=== PATIENT | female | born 1970 | race African-American/Black ===

== ENCOUNTER 2017-01-12 12:13 | Inpatient (IN) | payer OTHER ==
[~2017-01-12] VITALS: Ht 162.6 cm; Wt 91.4 kg
[2017-01-12] MEDS ORDERED: SODIUM CHLORIDE 0.9% 1,000 ML IVB ONE (13:04)
[2017-01-12 13:05] LABS: Basophils # (auto) 0 uL; Basophils % (auto) 0.9 % (0.0-2.0); Eosinophils # (auto) 0.1 uL; Eosinophils % (auto) 1.2 % (0.0-7.0); Hematocrit 43.6 % (36.0-46.0); Hemoglobin 14.2 g/dL (12.2-16.2); Lymphocytes # (auto) 1.5 uL; Lymphocytes % (auto) 32.9 % (10.0-50.0); Mean Corpuscular Hgb Conc. 32.6 g/dL (32.0-36.0); Mean Platelet Volume 7.9 fL (6.9-10.8); Monocytes # (auto) 0.4 uL; Monocytes % (auto) 8.2 % (0.0-12.0); Neutrophils # (auto) 2.6 uL; Neutrophils % (auto) 56.8 % (37.0-80.0); Nucleated Red Blood Cells % 0.1 %; Platelet Count (auto) 247 10^3/uL (140-450); Red Cell Distribution Width 13.8 % (11.8-14.3); White Blood Cell 4.6 10^3/uL (4.4-10.8)
[2017-01-12] MEDS ORDERED: ONDANSETRON HCL 4 MG/2 ML VIAL IV ONE (13:15)
[2017-01-12] MEDS ORDERED: HYDROmorphone HCL 2 MG/ML VL IV ONE ×2 (13:15→17:00)
[2017-01-12 13:24] LABS: Albumin 3.9 g/dL (3.4-5.0); Alkaline Phosphatase 78 U/L (45-117); Anion Gap 9 (5-15); Aspartate Aminotransferase 27 U/L (15-37); Bilirubin, Total 0.5 mg/dL (0.2-1.0); Blood Urea Nitrogen 8 mg/dL (7-18); Calcium 9.2 mg/dL (8.5-10.1); Carbon Dioxide 25 mmol/L (21-32); Chloride 101 mmol/L (98-107); GFR African American 100 mL/min; GFR Non-African American 82 mL/min; Glucose 102 mg/dL (74-106); Potassium 3.3 mmol/L (3.5-5.1); Sodium 135 mmol/L (136-145); Total Protein 8.5 g/dL (6.4-8.2)
[2017-01-12] MEDS ORDERED: LORazepam 2MG/ML-1ML VIAL IV PRN (17:30)
[2017-01-12] MEDS: SOD CHL 0.9%/ KCL 20MEQ 1,000 ML IV SCH (17:47)
[2017-01-12] MEDS: ATENOLOL 50 MG TAB PO SCH (17:55)
[2017-01-12 17:58] LABS: Urine Bilirubin Negative (Negative); Urine Blood Negative /uL (Negative); Urine Color Yellow (Yellow); Urine Glucose Normal (Normal); Urine Ketone Negative (Negative); Urine Nitrite Negative (Negative); Urine RBC 1 /hpf (0 - 4); Urine Squamous Epithelial Cell FEW /hpf (<5); Urine Urobilinogen Normal (Negative); Urine pH 7.5 (5.0-8.0)
[2017-01-12] MEDS: ONDANSETRON HCL 4 MG/2 ML VIAL IV PRN (20:19)
[2017-01-12] MEDS: MORPHINE SULF INJ 2 MG/ML SYRINGE 1ML IV PRN (20:19)
[2017-01-12 20:57] VITALS: BP 132/96
[2017-01-12 22:00] VITALS: BP 132/96
[2017-01-13] MEDS: MORPHINE SULF INJ 2 MG/ML SYRINGE 1ML IV PRN ×5 (00:26→22:44)
[2017-01-13] MEDS ORDERED: ESTR0.1C TD (02:18)
[2017-01-13] MEDS ORDERED: AML5T PO (02:18)
[2017-01-13] MEDS ORDERED: DIA5T PO (02:18)
[2017-01-13] MEDS ORDERED: ATE50T PO (02:18)
[2017-01-13] MEDS ORDERED: PREG75CA PO (02:18)
[2017-01-13] MEDS ORDERED: OXYC325T14 PO (02:18)
[2017-01-13] MEDS ORDERED: HYDR25TA4 PO (02:18)
[2017-01-13 05:32] VITALS: BP 117/59
[2017-01-13 05:57] LABS: Basophils # (auto) 0.1 uL; Basophils % (auto) 0.9 % (0.0-2.0); Eosinophils # (auto) 0.1 uL; Eosinophils % (auto) 1.1 % (0.0-7.0); Hematocrit 38.7 % (36.0-46.0); Hemoglobin 12.5 g/dL (12.2-16.2); Lymphocytes # (auto) 3.3 uL; Lymphocytes % (auto) 38.8 % (10.0-50.0); Mean Corpuscular Hemoglobin 29.4 pg (28.0-32.0); Mean Corpuscular Hgb Conc. 32.4 g/dL (32.0-36.0); Mean Corpuscular Volume 90.7 fL (80.0-100.0); Mean Platelet Volume 8.4 fL (6.9-10.8); Monocytes # (auto) 0.7 uL; Monocytes % (auto) 8.6 % (0.0-12.0); Neutrophils # (auto) 4.3 uL; Neutrophils % (auto) 50.6 % (37.0-80.0); Platelet Count (auto) 212 10^3/uL (140-450); Red Cell Distribution Width 14.1 % (11.8-14.3); White Blood Cell 8.4 10^3/uL (4.4-10.8)
[2017-01-13 06:27] LABS: Calcium 8.2 mg/dL (8.5-10.1); Potassium 3.1 mmol/L (3.5-5.1)
[2017-01-13 06:28] LABS: BUN/Creatinine Ratio 12.7
[2017-01-13] MEDS: SOD CHL 0.9%/ KCL 20MEQ 1,000 ML IV SCH ×2 (06:50→21:21)
[2017-01-13 09:00] VITALS: BP 146/88
[2017-01-13] MEDS: ATENOLOL 50 MG TAB PO SCH (10:36)
[2017-01-13] MEDS: LORazepam 2MG/ML-1ML VIAL IV PRN ×2 (12:22→21:08)
[2017-01-13 13:00] VITALS: BP 125/87
[2017-01-13] MEDS ORDERED: POTASSIUM CHL 20 Meq TABLET PO ONE (14:30)
[2017-01-13] MEDS ORDERED: LORazepam 2MG/ML-1ML VIAL IV PRN (15:45)
[2017-01-13 16:57] VITALS: BP 122/73
[2017-01-13 22:00] VITALS: BP 153/90
[2017-01-13] MEDS: ONDANSETRON HCL 4 MG/2 ML VIAL IV PRN (22:43)
[2017-01-14 05:00] VITALS: BP 157/91
[2017-01-14] MEDS ORDERED: LORA-622 PO (06:48)
[2017-01-14] MEDS ORDERED: GUAI1SOL3 PO (06:49)
[2017-01-14] MEDS: ONDANSETRON HCL 4 MG/2 ML VIAL IV PRN (07:54)
[2017-01-14] MEDS: MORPHINE SULF INJ 2 MG/ML SYRINGE 1ML IV PRN (08:00)
[2017-01-14 08:14] VITALS: BP 154/89
[2017-01-14] MEDS: ATENOLOL 50 MG TAB PO SCH (09:49)
[2017-01-14] MEDS: SOD CHL 0.9%/ KCL 20MEQ 1,000 ML IV SCH (09:49)
[2017-01-14] MEDS ORDERED: HCTZ 25 MG TAB PO ONE (11:30)
[2017-01-14] MEDS ORDERED: HYDROcodone-ACET 5/325MG TAB PO PRN (11:30)
[2017-01-14] MEDS ORDERED: amLODIPine BESYLATE 5 MG TAB PO ONE (11:30)
[2017-01-14] MEDS ORDERED: OXYCODONE W/ ACETAMINOPHEN 5/325MG TABLET PO PRN (11:45)
[2017-01-14 15:09] VITALS: BP 151/85
[2017-01-15] MEDS ORDERED: HCTZ 25 MG TAB PO SCH (10:00)
[2017-01-15] MEDS ORDERED: amLODIPine BESYLATE 5 MG TAB PO SCH (10:00)
== END 2017-01-14 17:15 | disposition home or self-care (01) | DRG 101 ==
LOC: EDBD 12:13 → ER 12:13 → OVERFLOW 12:14 → WEST WING 20:42
PROVIDERS: ADMIT Internal Medicine; ATTEND Internal Medicine
PROC: 4A10X4Z Monitoring of Central Nervous Electrical Activity, External Approach (ICD-10-PCS; principal; 2017-01-14)
DX: G40.89 Other seizures (principal); K76.0 Fatty (change of) liver, not elsewhere classified; I10 Essential (primary) hypertension; W18.30XA Fall on same level, unspecified, initial encounter; E87.6 Hypokalemia; F31.9 Bipolar disorder, unspecified; G89.29 Other chronic pain; R10.32 Left lower quadrant pain; M54.9 Dorsalgia, unspecified; F41.9 Anxiety disorder, unspecified; Y92.231 Patient bathroom in hospital as the place of occurrence of the external cause; Y93.01 Activity, walking, marching and hiking; J06.9 Acute upper respiratory infection, unspecified; Z90.710 Acquired absence of both cervix and uterus; Z80.41 Family history of malignant neoplasm of ovary; Z82.49 Family history of ischemic heart disease and other diseases of the circulatory system; Z79.899 Other long term (current) drug therapy; Y99.8 Other external cause status
CPT/HCPCS: 36415; 51702; 70450; 70551; 72125; 74176; 80048; 80053; 80307; 81001; 83690; 83735; 84484; 84702; 85025; 87081; 93005; 94761; 95819; 96361; 96374; 96375; 96376; J2405

== ENCOUNTER 2017-08-21 19:10 | Emergency (ER) | payer OTHER ==
[~2017-08-21] VITALS: Ht 162.6 cm; Wt 72.6 kg
[~2017-08-21 19:10] MED LIST: AML5T PO; ATE50T PO; DIA5T PO; ESTR0.1C TD; GUAI1SOL3 PO; HYDR25TA4 PO; LORA-622 PO; OXYC325T14 PO; PREG75CA PO
[2017-08-21 19:20] VITALS: BP 152/84
[2017-08-21 20:01] LABS: Basophils # (auto) 0.1 uL; Basophils % (auto) 1.8 % (0.0-2.0); Eosinophils # (auto) 0 uL; Eosinophils % (auto) 0.8 % (0.0-7.0); Hematocrit 39.2 % (36.0-46.0); Hemoglobin 12.7 g/dL (12.2-16.2); Lymphocytes # (auto) 2.3 uL; Lymphocytes % (auto) 46.1 % (10.0-50.0); Mean Corpuscular Hemoglobin 29.1 pg (28.0-32.0); Mean Corpuscular Hgb Conc. 32.4 g/dL (32.0-36.0); Mean Corpuscular Volume 89.6 fL (80.0-100.0); Monocytes # (auto) 0.5 uL; Monocytes % (auto) 9.3 % (0.0-12.0); Neutrophils # (auto) 2.1 uL; Nucleated Red Blood Cells % 0.2 %; Platelet Count (auto) 218 10^3/uL (140-450); Red Blood Cells 4.37 10^6/uL (4.0-5.20); Red Cell Distribution Width 14.4 % (11.8-14.3); White Blood Cell 4.9 10^3/uL (4.4-10.8)
[2017-08-21 20:16] LABS: Calcium 9.2 mg/dL (8.5-10.1); Potassium 3.3 mmol/L (3.5-5.1)
[2017-08-21 20:18] LABS: Bilirubin, Total 0.4 mg/dL (0.2-1.0); Total Protein 8.5 g/dL (6.4-8.2)
== END 2017-08-21 20:59 | disposition left against medical advice (07) ==
LOC: ER 19:14
DX: R51 Headache (principal)
CPT/HCPCS: 36415; 80053; 85025

== ENCOUNTER 2019-08-30 17:08 | Inpatient (IN) | payer OTHER ==
[~2019-08-30] VITALS: Ht 162.6 cm; Wt 85.5 kg
[2019-08-30 18:47] LABS: Basophils # (auto) 0 10 ^3/uL (0-0.2); Basophils % (auto) 0.6 % (0.0-2.0); Eosinophils # (auto) 0 10 ^3/uL (0-0.8); Eosinophils % (auto) 0.7 % (0.0-7.0); Hematocrit 40.4 % (36.0-46.0); Hemoglobin 13.4 g/dL (12.2-16.2); Lymphocytes # (auto) 1.9 10 ^3/uL (0.4-5.4); Mean Corpuscular Hemoglobin 29.3 pg (28.0-32.0); Mean Corpuscular Hgb Conc. 33.1 g/dL (32.0-36.0); Mean Corpuscular Volume 88.4 fL (80.0-100.0); Monocytes # (auto) 0.8 10 ^3/uL (0-1.3); Monocytes % (auto) 11.3 % (0.0-12.0); Neutrophils % (auto) 59.4 % (37.0-80.0); Nucleated Red Blood Cells % 0.1 %; Platelet Count (auto) 269 10^3/uL (140-450); Red Blood Cells 4.57 10^6/uL (4.0-5.20); Red Cell Distribution Width 13.7 % (11.8-14.3); White Blood Cell 6.7 10^3/uL (4.4-10.8)
[2019-08-30 19:08] LABS: Lactic Acid w/Reflex 2.2 mmol/L (0.4-2.0)
[2019-08-30] MEDS ORDERED: HYDROcodone-ACET 5/325MG TAB PO ONE (19:15)
[2019-08-30 19:19] LABS: Albumin 3.9 g/dL (3.4-5.0); Calcium 9.4 mg/dL (8.5-10.1); Magnesium 1.9 mg/dL (1.6-2.6); Potassium 3.3 mmol/L (3.5-5.1)
[2019-08-30 19:24] LABS: BUN/Creatinine Ratio 7.3; Bilirubin, Total 0.4 mg/dL (0.2-1.0); CRP High Sensitivity 0.68 mg/dL (< 0.3); Total Protein 8.7 g/dL (6.4-8.2)
[2019-08-30] MEDS ORDERED: SODIUM CHLORIDE 0.9% 1,000 ML IV SCH (20:05)
[2019-08-30] MEDS ORDERED: ACETAMINOPHEN 500 MG TAB PO PRN (20:15)
[2019-08-30] MEDS ORDERED: NITROGLYCERIN 0.4 MG SL TAB SL PRN (20:15)
[2019-08-30] MEDS ORDERED: LORazepam 0.5 MG TAB PO PRN (20:15)
[2019-08-30] MEDS ORDERED: ONDANSETRON HCL 4 MG/2 ML VIAL IV PRN (20:15)
[2019-08-30] MEDS ORDERED: MORPHINE SULF INJ 2 MG/ML SYRINGE 1ML IV PRN (20:15)
[2019-08-30 21:33] LABS: Urine Bacteria FEW /hpf (None Seen); Urine Blood Negative /uL (Negative); Urine Hyaline Cast FEW /lpf (0 - 2); Urine Mucus FEW (None Seen); Urine Specific Gravity 1.022 (1.001-1.035); Urine WBC 1 /hpf (0 - 5)
[2019-08-30 21:41] LABS: INR 1.09 (0.9-1.15); Partial Thromboplastin Time 27.3 sec (23.64-32.05)
[2019-08-30 22:00] VITALS: BP 150/79
--- NOTE | 2019-08-30 22:00 | NUR ---
Telemetry admit from ER [facility] admitted to Telemetry unit. Patient oriented to Brandy Akhtar, primary RN, unit, room, bed, and unit policies regarding patient care and NO VISITING CURRENT POLICY. Patient now on continuous telemetry monitoring, tele box #3 and telemetry reading on arrival to unit is SR 77 . Patient placed on bedside oxygen AT 3L, weighed by bedscale and encouraged to call if they need something. All questions and concerns addressed, patient verbalized understanding. PATIENT ISOLATION FOR RULE OUT COVID-19.
[2019-08-30] MEDS: SOD CHL 0.9%/ KCL 20MEQ 1,000 ML IV SCH (22:33)
[2019-08-30] MEDS: ATORVASTATIN 20 MG TAB PO SCH (22:56)
[2019-08-30] MEDS: DOXYCYCLINE 100 MG TAB/CAP PO SCH (22:57)
[2019-08-30] MEDS: ALBUTEROL SULF HFA 90MCG INH 200DOSE IN SCH (22:57)
[2019-08-30] MEDS: QUEtiapine FUMARATE 100 MG TAB PO SCH (22:57)
[2019-08-30] MEDS: PREGABALIN CAPSULE 75 MG CAP PO SCH (22:57)
--- NOTE | 2019-08-30 22:57 | NUR ---
Respiratory note: Addendum: 08/30/19 at 2307 by RT KATIANA RT ALBUTEROL MDI ADMINISTERED BY MÓNICA RODRIGUEZ. WILL CONTINUE TO MONITOR.
[2019-08-30] MEDS: MORPHINE SULF INJ 2 MG/ML SYRINGE 1ML IV PRN (23:11)
--- NOTE | 2019-08-30 23:24 | NUR ---
PATIENT UP TO RESTROOM STANDBY ASSIST PATIENT TOLERATED WELL. PATIENT BACK IN BED.
[2019-08-30 23:25] VITALS: BP 138/72
--- NOTE | 2019-08-30 23:30 | NUR ---
PAIN REASSESSMENT 08/26 PROVIDED PATIENT WITH EXTRA PILLOW AND ASSISTED PATIENT REPOSITIONING IN BED. PATIENT REPORTS TO BE COMFORTABLE.
[2019-08-31] VITALS: BP 122/69
--- NOTE | 2019-08-31 01:52 | NUR ---
PATIENT REPORTS PAIN 7/10. PROVIDED PATIENT WITH HEAT PADS TO HELP ALLEVIATE PAIN AND ASSISTED PATIENT IN REPOSITIONING WITH EXTRA PILLOWS. PAIN MEDS ARE NOT DUE AT THIS TIME. PATIENT REPORTS TO BE COMFORTABLE.
[2019-08-31] MEDS: MORPHINE SULF INJ 2 MG/ML SYRINGE 1ML IV PRN ×5 (03:29→22:43)
[2019-08-31] MEDS: SOD CHL 0.9%/ KCL 20MEQ 1,000 ML IV SCH (04:11)
[2019-08-31] MEDS: ALBUTEROL SULF HFA 90MCG INH 200DOSE IN SCH ×3 (06:47→22:24)
[2019-08-31] MEDS ORDERED: LEVOTHYROXINE SODIUM 25 MCG TAB PO SCH (07:00)
[2019-08-31 07:34] LABS: Basophils # (auto) 0.1 10 ^3/uL (0-0.2); Basophils % (auto) 1.7 % (0.0-2.0); Eosinophils # (auto) 0.1 10 ^3/uL (0-0.8); Hematocrit 37.5 % (36.0-46.0); Hemoglobin 12.3 g/dL (12.2-16.2); Lymphocytes # (auto) 3.8 10 ^3/uL (0.4-5.4); Lymphocytes % (auto) 53.3 % (10.0-50.0); Mean Corpuscular Hemoglobin 29.1 pg (28.0-32.0); Mean Corpuscular Hgb Conc. 32.9 g/dL (32.0-36.0); Mean Corpuscular Volume 88.4 fL (80.0-100.0); Monocytes # (auto) 0.7 10 ^3/uL (0-1.3); Monocytes % (auto) 10.2 % (0.0-12.0); Neutrophils # (auto) 2.4 10 ^3/uL (1.6-8.6); Neutrophils % (auto) 33.8 % (37.0-80.0); Nucleated Red Blood Cells % 0.4 %; Platelet Count (auto) 244 10^3/uL (140-450); Red Blood Cells 4.24 10^6/uL (4.0-5.20); Red Cell Distribution Width 13.7 % (11.8-14.3)
[2019-08-31 07:45] LABS: INR 1.13 (0.9-1.15); Partial Thromboplastin Time 26.8 sec (23.64-32.05)
[2019-08-31 07:52] LABS: Alanine Aminotransferase 32 U/L (13-56); Albumin 3.3 g/dL (3.4-5.0); Anion Gap 9 (5-15); Aspartate Aminotransferase 35 U/L (15-37); BUN/Creatinine Ratio 7.5; Blood Urea Nitrogen 5 mg/dL (7-18); Calcium 8.5 mg/dL (8.5-10.1); Carbon Dioxide 27 mmol/L (21-32); Chloride 103 mmol/L (98-107); GFR African American 121 mL/min; GFR Non-African American 100 mL/min; Glucose 101 mg/dL (74-106); Magnesium 1.8 mg/dL (1.6-2.6); Sodium 139 mmol/L (136-145)
[2019-08-31 07:57] LABS: Alkaline Phosphatase 65 U/L (45-117); Bilirubin, Total 0.6 mg/dL (0.2-1.0); CRP High Sensitivity 0.44 mg/dL (< 0.3); Cholesterol 190 mg/dL (< 200); Creatine Kinase IFCC 263 U/L (26-192); Phosphorus 4.4 mg/dL (2.5-4.90); Total Protein 7.4 g/dL (6.4-8.2)
[2019-08-31 08:00] LABS: HDL Cholesterol 40 mg/dL (40-59); LDL Cholesterol 123 mg/dL (< 100); Triglycerides 226 mg/dL (< 150)
--- NOTE | 2019-08-31 08:00 | NUR ---
OPENING SHIFT NOTE: PATIENT RESTING IN BED. RESPIRATIONS EVEN AND UNLABORED. NO S/S OF DISTRESS NOTED AT THIS TIME. A&OX4. PATIENT ON 2L NC. REPORTS HOME OXYGEN USE AT 2L VIA NC. PATIENT REPORTS CHRONIC BACK PAIN 01/26. SEE EMAR FOR MEDICATION ADMINISTRATION. UPDATED ON POC. BED IN LOWEST LOCKED POSITION WITH CALL LIGHT WITHIN REACH.
[2019-08-31] MEDS: PREGABALIN CAPSULE 75 MG CAP PO SCH ×2 (09:21→22:00)
[2019-08-31] MEDS: amLODIPine BESYLATE 5 MG TAB PO SCH ×2 (09:21→09:42)
[2019-08-31] MEDS: ATENOLOL 50 MG TAB PO SCH (09:30)
[2019-08-31] MEDS: DOXYCYCLINE 100 MG TAB/CAP PO SCH (09:30)
[2019-08-31] MEDS: ENOXAPARIN SOD 40 MG/0.4 ML SYRINGE SC SCH (09:31)
[2019-08-31] MEDS: ASCORBIC ACID 1,000 MG TAB PO SCH (09:31)
[2019-08-31] MEDS: CHOLECALCIFEROL (VITD3) 1,000UNIT=25mCg TAB PO SCH (09:31)
[2019-08-31] MEDS: HYDROcodone-ACET 5/325MG TAB PO PRN ×3 (09:43→18:07)
[2019-08-31] MEDS ORDERED: ZINC SULFATE 220mg CAP or TAB PO SCH (10:00)
[2019-08-31] MEDS ORDERED: POTASSIUM CHL 20 Meq TABLET PO ONE (11:15)
--- NOTE | 2019-08-31 13:16 | NUR ---
TRANSFERRED TO ROOM 288 WITH MÓNICA DRISCOLL. TRANSFERRED BY KIERRA BEARDEN. NO S/S OF DISTRESS NOTED.
--- NOTE | 2019-08-31 13:20 | NUR ---
Telemetry admit from [facility] admitted to Telemetry unit after SBAR received. Patient oriented to AMERICO GEIGER RN primary RN, unit, room 288A, bed, and unit policies regarding patient care and visiting hours. Patient now on continuous telemetry monitoring, tele box # 3 and telemetry reading on arrival to unit is sinus rhythm. Patient placed on bedside oxygen at 2lpm , weighed by bedscale and encouraged to call if they need something. All questions and concerns addressed, patient verbalized understanding.
--- NOTE | 2019-08-31 15:23 | NUR ---
MDI GIVEN BY RN. FELIZ , PER THE PT., NO RESP. DISTRESS NOTED. PT. STATES SHE JUST MOVED TO THIS ROOM. RT. DID NOT ADMINISTER AT THIS TIME.
[2019-08-31] MEDS ORDERED: AZITHROMYCIN 250 MG TAB PO ONE (16:15)
[2019-08-31] MEDS: ALUM & MAG HYDROX-SIMETH LIQ(MAALOX) 30 ML PO PRN (16:45)
[2019-08-31 17:00] VITALS: BP 101/60
--- NOTE | 2019-08-31 18:42 | NUR ---
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
[2019-08-31] MEDS ORDERED: HYDROmorphone HCL 2 MG/ML VL IV ONE (19:00)
[2019-08-31 20:00] VITALS: BP 108/69
--- NOTE | 2019-08-31 20:00 | NUR ---
Opening Shift Note Assumed care of patient, awake, AAOx4. No S/S of distress/SOB. On 2L oxygen via nasal cannula. Ambulatory. Bed in lowest locked position, side rails up x2, call light within reach. Instructed on POC and to call for assist PRN, will continue to monitor for changes Q1hr and PRN.
[2019-08-31 22:00] VITALS: BP 108/69
[2019-08-31] MEDS ORDERED: hydrOXYchloroQUINE SULFATE 200 MG TAB PO SCH (22:00)
[2019-08-31] MEDS: QUEtiapine FUMARATE 100 MG TAB PO SCH (22:00)
[2019-08-31] MEDS: ATORVASTATIN 20 MG TAB PO SCH (22:00)
--- NOTE | 2019-08-31 22:24 | NUR ---
ALBUTEROL MDI ADMINISTERED WITH SPACER ATTACHMENT. SPO2 100% ON 3L NC, TITRATED TO 2L, HR 73. WILL CONTINUE WITH NEXT SCHEDULED TX.
[2019-09-01 05:00] VITALS: BP 120/83
[2019-09-01] MEDS: ALBUTEROL SULF HFA 90MCG INH 200DOSE IN SCH ×3 (07:09→22:06)
--- NOTE | 2019-09-01 07:30 | NUR ---
Opening Shift Note Assumed care of patient, resting comfortably. No S/S of distress/SOB or pain on 2 LPM via nasal cannula. Instructed on POC and to call for assist PRN, will continue to monitor for changes Q1hr and PRN. Bed in low and locked position, rails up x2, no-slip socks on.
[2019-09-01 09:00] VITALS: BP 153/83
--- NOTE | 2019-09-01 09:00 | NUR ---
CALLED INTO ROOM PATIENTS CALLED ASKING TO SPEAK TO NURSE, AT THIS TIME THIS NURSE WAS ALREADY PULLING PAIN MEDICATIONS TO MEDICATE PATIENT AFTER PATIENT HAD CALLED ARCHITECTURAL COATING FINISHER LIGHT. PATIENT STATING 10/10 PAIN TO LOWER BACK, CRYING AND GUARDING SITE. MEDICATED PATIENT ORDERED, SUPPLIED HEAT PACKS AND PLACED IN POSITION OF COMFORT. UPON REASSESSMENT OF PAIN, PATIENT IS EYES CLOSED SLEEPING IN BED, WILL REASSESS PATIENTS PAIN LEVEL AND NOTIFY MD.
[2019-09-01] MEDS: MORPHINE SULF INJ 2 MG/ML SYRINGE 1ML IV PRN ×4 (09:07→21:15)
[2019-09-01] MEDS: ATENOLOL 50 MG TAB PO SCH (09:49)
[2019-09-01] MEDS: CHOLECALCIFEROL (VITD3) 1,000UNIT=25mCg TAB PO SCH (09:49)
[2019-09-01] MEDS: amLODIPine BESYLATE 5 MG TAB PO SCH (09:50)
[2019-09-01] MEDS: PREGABALIN CAPSULE 75 MG CAP PO SCH ×2 (09:50→22:00)
[2019-09-01] MEDS: ENOXAPARIN SOD 40 MG/0.4 ML SYRINGE SC SCH (09:57)
[2019-09-01] MEDS: AZITHROMYCIN 250 MG TAB PO SCH (09:59)
[2019-09-01] MEDS: ASCORBIC ACID 1,000 MG TAB PO SCH (10:46)
[2019-09-01] MEDS: HYDROcodone-ACET 5/325MG TAB PO PRN ×2 (10:46→14:50)
[2019-09-01] MEDS: ALUM & MAG HYDROX-SIMETH LIQ(MAALOX) 30 ML PO PRN (10:46)
--- NOTE | 2019-09-01 12:25 | NUR ---
DR JACQUES AT BEDSIDE ORDERS TO TRANSFER TO [facility], STOOL SAMPLE FOR OCCULT BLOOD, C-DIFF AND BACTERIAL CULTURE, SPECIMEN CUP AND HAT PROVIDED.
[2019-09-01 13:00] VITALS: BP 146/83
--- NOTE | 2019-09-01 14:21 | NUR ---
PAGE TO DR JACQUES PATIENT STILL COMPLAINING OF PAIN UNRELIEVED WITH CURRENT PAIN MEDICATION REGIMEN. REQUESTING A INCREASE IN DOSE. AWAITING CALL BACK FROM PROVIDER.
--- NOTE | 2019-09-01 14:44 | NUR ---
Respiratory note: PT REFUSING BREATHING TX AT THIS TIME. NO S/S OF RESPIRATORY DISTRESS NOTED.
[2019-09-01] MEDS ORDERED: MORPHINE SULF INJ 2 MG/ML SYRINGE 1ML IV ONE (15:00)
--- NOTE | 2019-09-01 15:00 | NUR ---
DR JACQUES CALL BACK NEW ORDERS ADDED, WILL CARRY OUT.
[2019-09-01 15:44] LABS: Basophils # (auto) 0.1 10 ^3/uL (0-0.2); Basophils % (auto) 1.6 % (0.0-2.0); Eosinophils # (auto) 0.1 10 ^3/uL (0-0.8); Eosinophils % (auto) 1.5 % (0.0-7.0); Hematocrit 39.5 % (36.0-46.0); Hemoglobin 12.7 g/dL (12.2-16.2); Lymphocytes # (auto) 2.4 10 ^3/uL (0.4-5.4); Lymphocytes % (auto) 37.4 % (10.0-50.0); Mean Corpuscular Hemoglobin 28.5 pg (28.0-32.0); Mean Corpuscular Hgb Conc. 32.1 g/dL (32.0-36.0); Mean Corpuscular Volume 88.9 fL (80.0-100.0); Monocytes # (auto) 0.6 10 ^3/uL (0-1.3); Monocytes % (auto) 8.6 % (0.0-12.0); Neutrophils # (auto) 3.3 10 ^3/uL (1.6-8.6); Neutrophils % (auto) 50.9 % (37.0-80.0); Nucleated Red Blood Cells % 0.1 %; Platelet Count (auto) 246 10^3/uL (140-450); Red Blood Cells 4.44 10^6/uL (4.0-5.20); Red Cell Distribution Width 13.7 % (11.8-14.3); White Blood Cell 6.5 10^3/uL (4.4-10.8)
[2019-09-01 16:00] LABS: Albumin 3.4 g/dL (3.4-5.0); BUN/Creatinine Ratio 8.8; Calcium 8.8 mg/dL (8.5-10.1); Potassium 3.8 mmol/L (3.5-5.1)
[2019-09-01 16:03] LABS: Bilirubin, Total 0.3 mg/dL (0.2-1.0); Total Protein 7.6 g/dL (6.4-8.2)
[2019-09-01 17:00] VITALS: BP 131/77
--- NOTE | 2019-09-01 17:26 | NUR ---
NO BOWEL MOVEMENT UPON PHYSICIAN ROUNDING PATIENT COMPLAINED OF BRIGHT RED BLOOD IN STOOL. SHE DID NOT SAVE SPECIMEN AND THIS NURSE WAS UNABLE TO VISUALIZE IT PATIENT HAD FLUSHED IT. ORDERS ADDED TO COLLECT FOR STOOL OCCULT BLOOD, PATIENT HAS YET TO HAVE ANOTHER BOWEL MOVEMENT. SPECIMEN CUP AND HAT SUPPLIED TO PATIENT AND EDUCATED ON NEED FOR COLLECTION, PATIENT VERBALIZED UNDERSTANDING.
--- NOTE | 2019-09-01 19:08 | NUR ---
SHIFT CHANGE ENDORSED CARE TO NOC SHIFT NURSE DEIDRE
[2019-09-01 22:00] VITALS: BP 108/66
[2019-09-01] MEDS: QUEtiapine FUMARATE 100 MG TAB PO SCH (22:00)
[2019-09-01] MEDS: ATORVASTATIN 20 MG TAB PO SCH (22:00)
[2019-09-02] MEDS: MORPHINE SULF INJ 2 MG/ML SYRINGE 1ML IV PRN ×4 (01:12→14:27)
[2019-09-02 05:00] VITALS: BP 125/73
--- NOTE | 2019-09-02 05:30 | NUR ---
PATIENT REFUSED AM LABS PER STATISTICAL SECRETARY. LAB WILL COME BACK AROUND 0900 TO GET ORDERED LABS.
[2019-09-02] MEDS: ALBUTEROL SULF HFA 90MCG INH 200DOSE IN SCH ×2 (06:39→13:31)
--- NOTE | 2019-09-02 07:35 | NUR ---
Opening Note Assumed pt care from NOC RN. Pt is a/ox4 with no s/s of distress or SOB. Pt is currently laying in bed with no complaints at this time. Discussed PCO with pt; pt verbalized understanding. Safety measures maintained with call light within reach, bed in lowest position and side rails up. Will continue to monitor.
[2019-09-02] MEDS ORDERED: LEVO25TA6 PO (07:48)
[2019-09-02] MEDS: HYDROcodone-ACET 5/325MG TAB PO PRN ×3 (08:16→16:45)
[2019-09-02 09:00] VITALS: BP 127/76
[2019-09-02] MEDS: CHOLECALCIFEROL (VITD3) 1,000UNIT=25mCg TAB PO SCH (09:05)
[2019-09-02] MEDS: ASCORBIC ACID 1,000 MG TAB PO SCH (09:05)
[2019-09-02] MEDS: ATENOLOL 50 MG TAB PO SCH (09:05)
[2019-09-02] MEDS: PREGABALIN CAPSULE 75 MG CAP PO SCH (09:06)
[2019-09-02] MEDS: AZITHROMYCIN 250 MG TAB PO SCH (09:06)
[2019-09-02] MEDS: amLODIPine BESYLATE 5 MG TAB PO SCH (09:06)
--- NOTE | 2019-09-02 09:10 | NUR ---
Reinforced Need for Stool Sample Provided pt with hat in toilet and specimen cup. Pt aware of need to call if need assistance. Will continue to monitor.
[2019-09-02] MEDS: ENOXAPARIN SOD 40 MG/0.4 ML SYRINGE SC SCH (09:13)
[2019-09-02 10:28] LABS: Basophils # (auto) 0 10 ^3/uL (0-0.2); Basophils % (auto) 0.5 % (0.0-2.0); Eosinophils # (auto) 0.1 10 ^3/uL (0-0.8); Eosinophils % (auto) 1.8 % (0.0-7.0); Hemoglobin 12.6 g/dL (12.2-16.2); Lymphocytes % (auto) 37.4 % (10.0-50.0); Mean Corpuscular Hemoglobin 28.7 pg (28.0-32.0); Mean Corpuscular Hgb Conc. 32.2 g/dL (32.0-36.0); Mean Corpuscular Volume 89.1 fL (80.0-100.0); Monocytes # (auto) 0.6 10 ^3/uL (0-1.3); Monocytes % (auto) 10.7 % (0.0-12.0); Neutrophils # (auto) 2.6 10 ^3/uL (1.6-8.6); Neutrophils % (auto) 49.6 % (37.0-80.0); Nucleated Red Blood Cells % 0.1 %; Platelet Count (auto) 249 10^3/uL (140-450); Red Blood Cells 4.38 10^6/uL (4.0-5.20); Red Cell Distribution Width 13.6 % (11.8-14.3); White Blood Cell 5.2 10^3/uL (4.4-10.8)
[2019-09-02] MEDS: ALUM & MAG HYDROX-SIMETH LIQ(MAALOX) 30 ML PO PRN (12:22)
[2019-09-02 13:19] VITALS: BP 117/75
[2019-09-02 14:38] LABS: Amphetamine Screen, Urine NEGATIVE (NEGATIVE); Barbiturate Scree,Urine NEGATIVE (NEGATIVE); Benzodiazephine Screen, Urine POSITIVE (NEGATIVE); Cannabinoid Screen, Urine POSITIVE (NEGATIVE); Cocaine Screen, Urine NEGATIVE (NEGATIVE)
[2019-09-02 14:45] LABS: Opiate Scree,Urine POSITIVE (NEGATIVE); Phencyclidine Screen, Urine NEGATIVE (NEGATIVE)
--- NOTE | 2019-09-02 16:42 | NUR ---
Dr Huizar at Bedside MD to see pt. Plans to d/c pt home today. requests that UA be ran again. Called lab for request.
[2019-09-02 17:00] VITALS: BP 126/80
[2019-09-02 17:15] LABS: Urine Bacteria NONE SEEN /hpf (None Seen); Urine Blood Negative /uL (Negative); Urine Mucus FEW (None Seen); Urine WBC 1 /hpf (0 - 5)
--- NOTE | 2019-09-02 17:37 | NUR ---
Dr. Huizar made aware of negative UA results. plans to DC pt home with antibiotics. Signed: 09/02/19 at 1738 by NESTOR WOOTEN SN <Co-Signature Required> Co-Signed: 09/02/19 at 1738 by LILI RUIZ RN RN
[2019-09-02 18:06] VITALS: BP 126/80
--- NOTE | 2019-09-02 18:22 | NUR ---
DC IV and tele box 52. DC IV on left arm, catheter removed intact, site asymptomatic, pressure applied with gauze for 3 minutes and wrapped in coband. Pt instructed to keep dressing on for 30 minutes. Tele 52 removed, sent to library monitor. Tech made aware of DC. Signed: 09/02/19 at 1823 by NESTOR WOOTEN SN <Co-Signature Required> Co-Signed: 09/02/19 at 1823 by LILI RUIZ RN RN
--- NOTE | 2019-09-02 18:36 | NUR ---
Pt DC on wheelchair with belongings. Pt alert and oriented. DC IV and tele 52 prior to DC. Pt is aware of needing follow up appointment, prescription and education given to pt at DC. All questions were answered. Signed: 09/02/19 at 1838 by NESTOR WOOTEN <Co-Signature Required> Co-Signed: 09/02/19 at 1838 by LILI RUIZ RN RN
== END 2019-09-02 18:36 | disposition home or self-care (01) | DRG 202 ==
LOC: ER 17:08 → EDBD 17:08 → TELE 17:09 → TELE-WESTW 22:00 → TELE-EAST 22:37 → TELE-WESTW 08-31 13:18
PROVIDERS: ADMIT Hospitalist; ATTEND Internal Medicine
DX: J20.9 Acute bronchitis, unspecified (principal); E87.2 Acidosis; E87.6 Hypokalemia; Z03.818 Encounter for observation for suspected exposure to other biological agents ruled out; E03.9 Hypothyroidism, unspecified; F41.9 Anxiety disorder, unspecified; F31.9 Bipolar disorder, unspecified; F19.10 Other psychoactive substance abuse, uncomplicated; G89.29 Other chronic pain; M54.5 Low back pain; E66.9 Obesity, unspecified; F29 Unspecified psychosis not due to a substance or known physiological condition; I10 Essential (primary) hypertension; Z90.710 Acquired absence of both cervix and uterus; Z85.43 Personal history of malignant neoplasm of ovary; Z68.32 Body mass index [BMI] 32.0-32.9, adult
CPT/HCPCS: 36415; 71045; 80053; 80061; 80307; 81001; 82550; 82728; 83036; 83605; 83615; 83735; 83880; 84100; 84439; 84443; 84484; 85025; 85379; 85610; 85652; 85730; 86141; 87040; 87070; 87804; 87880; 94640; G0378

== ENCOUNTER 2021-07-19 10:04 | Emergency (ER) | payer OTHER ==
[~2021-07-19] VITALS: Ht 162.6 cm; Wt 72.6 kg
[~2021-07-19 10:04] MED LIST changes: -DIA5T PO; -GUAI1SOL3 PO; +LEVO25TA6 PO
[2021-07-19] MEDS ORDERED: PROMETHAZINE HCL 25 MG/ML 1ML IM ONE (10:45)
[2021-07-19] MEDS ORDERED: MORPHINE SULFATE INJECTION 2 MG/ML SYRG IM ONE (10:45)
[2021-07-19 10:52] VITALS: BP 134/68
== END 2021-07-19 11:27 | disposition home or self-care (01) ==
LOC: ER 10:04
DX: G89.29 Other chronic pain (principal); M54.50 Low back pain, unspecified; I10 Essential (primary) hypertension; Z79.899 Other long term (current) drug therapy; Z90.710 Acquired absence of both cervix and uterus
CPT/HCPCS: 96372; 99284; J2270; J2550

== ENCOUNTER 2021-07-22 06:21 | Emergency (ER) | payer OTHER ==
[~2021-07-22] VITALS: Ht 162.6 cm; Wt 72.6 kg
[2021-07-22] MEDS: HYDROcodone-ACET 10/325MG TAB PO ONE ×2 (07:00→07:32)
[2021-07-22] MEDS: KETOROLAC TROMETH 60MG/2ML VIAL IM ONE ×2 (07:00→07:33)
[2021-07-22 07:18] LABS: Basophils # (auto) 0.1 10 ^3/uL (0-0.2); Basophils % (auto) 1.5 % (0.0-2.0); Eosinophils # (auto) 0 10 ^3/uL (0-0.8); Eosinophils % (auto) 0.7 % (0.0-7.0); Hematocrit 38.8 % (36.0-46.0); Lymphocytes # (auto) 2.2 10 ^3/uL (0.4-5.4); Lymphocytes % (auto) 40.2 % (10.0-50.0); Mean Corpuscular Hemoglobin 29.5 pg (28.0-32.0); Mean Corpuscular Hgb Conc. 33.6 g/dL (32.0-36.0); Mean Corpuscular Volume 87.7 fL (80.0-100.0); Monocytes # (auto) 0.3 10 ^3/uL (0-1.3); Monocytes % (auto) 6.2 % (0.0-12.0); Neutrophils # (auto) 2.8 10 ^3/uL (1.6-8.6); Neutrophils % (auto) 51.4 % (37.0-80.0); Nucleated Red Blood Cells % 0.2 %; Red Blood Cells 4.43 10^6/uL (4.0-5.20); Red Cell Distribution Width 13.5 % (11.8-14.3); White Blood Cell 5.5 10^3/uL (4.4-10.8)
[2021-07-22 07:36] LABS: Albumin 3.8 g/dL (3.4-5.0); Calcium 9.1 mg/dL (8.5-10.1); Potassium 3.6 mmol/L (3.5-5.1)
[2021-07-22 07:38] LABS: BUN/Creatinine Ratio 8.5
[2021-07-22] MEDS ORDERED: HYDROmorphone HCL 2 MG/ML VL IM ONE (07:45)
[2021-07-22] MEDS ORDERED: ONDANSETRON HCL 4 MG/2 ML VIAL IM ONE (07:45)
[2021-07-22 07:51] LABS: Bilirubin, Total 0.3 mg/dL (0.2-1.0); Total Protein 8.1 g/dL (6.4-8.2)
[2021-07-22 07:56] VITALS: BP 164/77
== END 2021-07-22 08:09 | disposition home or self-care (01) ==
LOC: ER 06:21
DX: S33.5XXA Sprain of ligaments of lumbar spine, initial encounter (principal); M79.10 Myalgia, unspecified site; G89.29 Other chronic pain; M54.50 Low back pain, unspecified; I10 Essential (primary) hypertension; Z90.710 Acquired absence of both cervix and uterus; Z79.899 Other long term (current) drug therapy; X58.XXXA Exposure to other specified factors, initial encounter; Y93.89 Activity, other specified; Y92.89 Other specified places as the place of occurrence of the external cause; Y99.8 Other external cause status
CPT/HCPCS: 36415; 72100; 80053; 84484; 85025; 93005; 96372; 99285; J1170; J1885; J2405

== ENCOUNTER 2021-12-31 10:30 | Emergency (ER) | payer OTHER ==
[~2021-12-31] VITALS: Ht 162.6 cm; Wt 80.4 kg
[2021-12-31 10:46] VITALS: BP 155/80
[2021-12-31] MEDS ORDERED: ONDANSETRON HCL 4 MG/2 ML VIAL IV ONE (11:15)
[2021-12-31] MEDS ORDERED: KETOROLAC TROMETH 30 MG/ML 1ML VIAL IV ONE (11:15)
[2021-12-31] MEDS ORDERED: SODIUM CHLORIDE 0.9% 1,000 ML IVB ONE (11:15)
[2021-12-31 11:27] LABS: Albumin 4.3 g/dL (3.4-5.0); Calcium 9.4 mg/dL (8.5-10.1); Potassium 3.5 mmol/L (3.5-5.1)
[2021-12-31 11:30] LABS: Bilirubin, Total 0.5 mg/dL (0.2-1.0); Total Protein 8.8 g/dL (6.4-8.2)
[2021-12-31 11:44] LABS: Basophils # (auto) 0 10 ^3/uL (0-0.2); Basophils % (auto) 0.8 % (0.0-2.0); Eosinophils # (auto) 0.1 10 ^3/uL (0-0.8); Eosinophils % (auto) 2.6 % (0.0-7.0); Hematocrit 44.1 % (36.0-46.0); Lymphocytes # (auto) 2.1 10 ^3/uL (0.4-5.4); Lymphocytes % (auto) 46.2 % (10.0-50.0); Mean Corpuscular Hemoglobin 27.6 pg (28.0-32.0); Mean Corpuscular Hgb Conc. 31.7 g/dL (32.0-36.0); Mean Corpuscular Volume 87.1 fL (80.0-100.0); Monocytes # (auto) 0.4 10 ^3/uL (0-1.3); Monocytes % (auto) 9.1 % (0.0-12.0); Neutrophils # (auto) 1.9 10 ^3/uL (1.6-8.6); Neutrophils % (auto) 41.3 % (37.0-80.0); Nucleated Red Blood Cells % 0.3 %; Red Blood Cells 5.06 10^6/uL (4.0-5.20); White Blood Cell 4.5 10^3/uL (4.4-10.8)
[2021-12-31 14:53] LABS: Urine Bacteria NONE SEEN /hpf (None Seen); Urine Blood Negative /uL (Negative); Urine Budding Yeast FEW /hpf (None Seen); Urine Hyaline Cast FEW /lpf (0 - 2); Urine Mucus FEW (None Seen); Urine Specific Gravity 1.026 (1.001-1.035); Urine WBC 6 /hpf (0 - 5)
[2021-12-31] MEDS ORDERED: CIPR-173 PO (15:20)
[2021-12-31] MEDS ORDERED: KETOROLAC TROMETH 30 MG/ML 1ML VIAL IM ONE (16:00)
[2021-12-31] MEDS ORDERED: ONDANSETRON HCL 4 MG/2 ML VIAL IM ONE (16:00)
== END 2021-12-31 16:12 | disposition home or self-care (01) ==
LOC: ER 10:30
DX: N39.0 Urinary tract infection, site not specified (principal); E78.5 Hyperlipidemia, unspecified; I10 Essential (primary) hypertension; F12.10 Cannabis abuse, uncomplicated; Z20.822 Contact with and (suspected) exposure to COVID-19
CPT/HCPCS: 36415; 76705; 80053; 81001; 83690; 85025; 87426; 93005; 96372; 99285; J1885; J2405; J7030

== ENCOUNTER 2022-01-11 21:37 | Emergency (ER) | payer OTHER ==
[~2022-01-11] VITALS: Ht 162.6 cm; Wt 90.7 kg
[~2022-01-11 21:37] MED LIST changes: +CIPR-173 PO
[2022-01-11 21:51] VITALS: BP 160/84
== END 2022-01-12 03:40 | disposition left against medical advice (07) ==
LOC: EDBD 21:37 → ER 21:40
DX: F41.1 Generalized anxiety disorder (principal); Z53.21 Procedure and treatment not carried out due to patient leaving prior to being seen by health care provider